=== PATIENT | female | born 1990 | race Caucasian/White ===

== ENCOUNTER 2017-08-17 10:45 | Emergency (ER) | payer OTHER ==
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
--- NOTE | 2017-08-17 12:01 | CT Preliminary Report ---
Exam: CT CERVICAL SPINE W/O IMPRESSION: 1. No acute cervical spine abnormalities are identified. [facility] SITE ID: [id number]
--- NOTE | 2017-08-17 12:02 | CT Preliminary Report ---
Exam: CT HEAD W/O IMPRESSION: 1. No acute intracranial abnormality. No skull fracture. [facility] SITE ID: [id number]
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
[2017-08-17 12:09] VITALS: BP 142/88
== END 2017-08-17 12:27 | disposition home or self-care (01) ==
LOC: ED 10:45
DX: S06.0X0A Concussion without loss of consciousness, initial encounter (principal); S13.4XXA Sprain of ligaments of cervical spine, initial encounter; V89.2XXA Person injured in unspecified motor-vehicle accident, traffic, initial encounter
CPT/HCPCS: 70450; 72125; 99283; 99284